=== PATIENT | female | born 1980 | race African-American/Black ===

== ENCOUNTER 2025-05-21 18:15 | Emergency (ER) | payer MEDICAID ==
[~2025-05-21] VITALS: Ht 165.1 cm; Wt 72.0 kg
[2025-05-21 18:19] VITALS: O2SAT 99
[2025-05-21 19:05] LABS: BASOPHILS % 0.5 % (0.0-2.0); EOSINOPHILS % 1.9 % (0.0-5.0); HEMATOCRIT. 34.1 % (36.0-48.0); HEMOGLOBIN. 10.7 g/dL (12.0-16.0); LYMPHOCYTES % 22.3 % (20.0-50.0); MEAN PLATELET VOLUME 7.8 fl (7.4-10.4); MONOCYTES % 12.2 % (2.0-8.0); NEUTROPHILS % 63.1 % (40.0-76.0); PLATELET 240 x1000/uL (130-400); RED BLOOD CELL COUNT 4.90 mill/uL (4.2-5.4); RED CELL DISTRIBUTION WIDTH 15.3 % (11.6-14.6)
[2025-05-21 19:06] LABS: ADD RBC MORPHOLOGY YES
[2025-05-21 19:15] LABS: PLATELET ESTIMATE NORMAL
[2025-05-21 19:16] LABS: INR 1.0
[2025-05-21 19:26] LABS: CREATININE 0.7 mg/dL (0.6-1.0); PROTEIN TOTAL 7.5 g/dL (6.0-8.3); UREA NITROGEN BLOOD 9 mg/dL (9-23)
[2025-05-21 19:27] LABS: ASPARTATE AMINOTRANSFERASE 25 IU/L (<34)
[2025-05-21 19:28] LABS: BILIRUBIN DIRECT 0.2 mg/dL (<=3.0); BILIRUBIN TOTAL 0.6 mg/dL (0.1-1.0)
[2025-05-21 19:31] LABS: B-HCG QUANTITATIVE < 1 mIU/mL (<6)
[2025-05-21 19:54] VITALS: TEMP 36.8
[2025-05-21 20:43] VITALS: BP 117/79; PULSE 91; RESP 11; O2SAT 99
== END 2025-05-21 20:53 | disposition home or self-care (01) ==
LOC: ER 18:15
DX: O34.12 Maternal care for benign tumor of corpus uteri, second trimester (principal); R10.20 Pelvic and perineal pain unspecified side; D25.9 Leiomyoma of uterus, unspecified; Z88.0 Allergy status to penicillin; Z3A.18 18 weeks gestation of pregnancy
CPT/HCPCS: 36415; 76856; 80048; 80076; 84702; 85025; 86850; 86900; 99284